=== PATIENT | male | born 1995 | race Caucasian/White ===

== ENCOUNTER 2016-04-25 10:06 | Emergency (ER) | payer BC ==
[2016-04-25 10:16] VITALS: BP 177/92
[2016-04-25] MEDS ORDERED: cefTRIAXone VIAL(*) 1,000 MG VIAL IM ONE (11:05)
[2016-04-25] MEDS ORDERED: Azithromycin TAB* 250 MG PO ONE (11:05)
--- NOTE | 2016-04-25 11:10 | UC ---
Complaint Male HPI - HPI Summary HPI Summary: Pt c/o erythema, blisters and tenderness on shaft of penis. Reports that he had unprotected heterosexual intercourse 2 weeks ago and symptoms began a "few days" after sexual encounter. Partner is a known partner to pt. Denies any STD 's. Also, c/o of pruritic rash at top of buttocks intergluteal . Also, c/o pain with urination. - History of Current Complaint Chief Complaint: UCSTDScreening Stated Complaint: PERSONAL Time Seen by Provider: 04/25/16 10:43 Hx Obtained From: Patient Onset/Duration: Gradual Onset, Lasting Weeks Timing: Constant Severity Initially: Mild Severity Currently: Mild Location: Penis Character: Burning - with urination, healing blisters are tender to touch. Aggravating Factor(s): Voiding Associated Signs And Symptoms: Positive: Dysuria Prior STD Hx: denies - Allergies/Home Medications Allergies/Adverse Reactions: Allergies Allergy/AdvReac Type Severity Reaction Status Date / Time hay Allergy Itching Uncoded 02/03/15 20:11 PMH/Surg Hx/FS Hx/Imm Hx Previously Healthy: Yes Respiratory History Of: Reports: Asthma - Surgical History Surgical History: Yes Surgery Procedure, Year, and Place: wisdom teeth - Family History Known Family History: Positive: Other - unknown [facility] for STD's - Social History Occupation: Employed Part-time Lives: With Family Alcohol Use: None Substance Use Type: None Smoking Status (MU): Light Every Day Tobacco Smoker Type: Cigarettes Amount Used/How Often: 6 cigarettes daily Review of Systems Constitutional: Negative Skin: Rash, Other - blisters ENT: Negative Respiratory: Negative Cardiovascular: Negative Gastrointestinal: Negative Genitourinary: Dysuria Motor: Negative Neurovascular: Negative Musculoskeletal: Negative Neurological: Negative Psychological: Negative All Other Systems Reviewed And Are Negative: Yes Physical Exam Triage Information Reviewed: Yes Appearance: Well-Appearing Vital Signs: Initial Vital Signs Temp 99.9 F 04/25/16 10:11 Pulse 108 04/25/16 10:11 Resp 20 04/25/16 10:11 BP 177/92 04/25/16 10:11 Pulse Ox 99 04/25/16 10:11 Vital Signs Reviewed: Yes Neck exam: Normal Respiratory Exam: Normal Cardiovascular Exam: Normal Abdominal Exam: Normal Bowel Sounds: Positive: Present Musculoskeletal Exam: Normal Neurological Exam: Normal Psychological Exam: Normal Skin Exam: Other - two small, eraser head size healing sores, mild tenderness with examination. NO discharge, pinprick, mild erythema sacrum, intergluteal cleft fold Complaint Male Course/Dx - Differential Dx/Diagnosis Differential Diagnosis/HQI/PQRI: Epididymitis, Urinary Tract Infection, Other - urethritis, STD's Provider Diagnoses: urethritis,. Possible STD exposure Discharge - Discharge Plan Condition: Stable Disposition: HOME Patient Education Materials: Nonspecific Urethritis in Men (ED), Skin Yeast Infection (ED) Referrals: No Primary Care Phys,NOPCP [Primary Care Provider] - [facility] [Outside]
[2016-04-25] MEDS ORDERED: Lidocaine 1%* 5 ML VIAL ONE (11:13)
[2016-04-26 11:47] LABS: Syphilis Index < 0.1 Index
== END 2016-04-25 11:53 | disposition home or self-care (01) ==
LOC: UCCORT 10:06
DX: N34.2 Other urethritis (principal); R21 Rash and other nonspecific skin eruption; F17.210 Nicotine dependence, cigarettes, uncomplicated
CPT/HCPCS: 36415; 86592; 86694; 86695; 86696; 87491; 87591; 96372; 99212; A9270-GY; G0463; J0696

== ENCOUNTER 2016-06-07 03:24 | Emergency (ER) | payer BC ==
[2016-06-07] MEDS ORDERED: NS 0.9% 1000 ML* 2,000 ML IV ONE (03:51)
[2016-06-07 04:06] LABS: Urine Bacteria Absent (Absent); Urine Bilirubin Negative (Negative); Urine Glucose Negative (Negative); Urine Nitrite Negative (Negative)
[2016-06-07 04:12] LABS: Benzodiazepine Urine Screen None Detected (None Detect)
[2016-06-07 04:20] LABS: Hematocrit 44 % (42-52); Hemoglobin 15.2 g/dl (14.0-18.0); Mean Corpuscular HGB Conc 35 g/dl (31-36); Mean Corpuscular Hemoglobin 30 pg (27-31); Mean Corpuscular Volume 87 fL (80-94); Mean Platelet Volume 8 um3 (7.4-10.4); Red Blood Count 5.06 10^6/ul (4.0-5.4); Red Cell Distribution Width 13 % (10.5-15)
[2016-06-07 04:29] LABS: ALT 32 U/L (7-52); AST 24 U/L (13-39); Albumin 4.3 g/dL (3.2-5.2); Alkaline Phosphatase 39 U/L (34-104); Anion Gap 7 mmol/L (2-11); BUN/Creatinine Ratio 19.4 (8-20); Blood Urea Nitrogen 19 mg/dL (6-24); CO2 Carbon Dioxide 27 mmol/L (22-32); Calcium 8.9 mg/dL (8.6-10.3); Chloride 101 mmol/L (101-111); EGFR Non-African American 95.6 (>60); Globulin 2.7 g/dL (2-4); Glucose 145 mg/dL (70-100); Potassium 3.6 mmol/L (3.5-5.0); Sodium 135 mmol/L (133-145)
[2016-06-07 04:32] LABS: Troponin I 0.01 ng/mL (<0.04)
[2016-06-07 04:40] LABS: Acetaminophen < 15 mcg/mL; Alcohol < 10 mg/dL (<10); Salicylate < 2.50 mg/dL (<30)
[2016-06-07 04:50] LABS: TSH (Thyroid Stimulating Horm) 7.51 mcIU/mL (0.34-5.60)
--- NOTE | 2016-06-07 06:24 | ED ---
Jo Ann Simons Claudia, scribed for Trisha Cerdauel on 06/07/16 at 0334 . Substance Abuse/Use - HPI Summary HPI Summary: 21 year old male presents to the ED post- substance overuse. Pt is unresponsive when found by EMS in [place] parking lot. Pt is given 2 dosages of Narcan and becomes responsive. Pt is responsive but drowsy on arrival to [facility]. Pt states he took 5-6 oxycodone but did not take anything else. Pt notes he took it around 21:00. Pt denies CP, abd pain. - History Of Current Complaint Chief Complaint: EDOverdose Stated Complaint: OVERDOSE Time Seen by Provider: 06/07/16 03:31 Hx Obtained From: Patient Ingestion History: Type/Name Of Drug - oxycodone, Amount Ingested - 5-6 pills, Approximate Time Of Ingestion - 2100 Overdose Characteristics: Oral - Allergies/Home Medications Allergies/Adverse Reactions: Allergies Allergy/AdvReac Type Severity Reaction Status Date / Time hay Allergy Itching Uncoded 06/07/16 03:34 PMH/Surg Hx/FS Hx/Imm Hx Previously Healthy: Yes Endocrine/Hematology History: Denies: Hx Diabetes Respiratory History: Reports: Hx Asthma - Surgical History Surgery Procedure, Year, and Place: wisdom teeth Infectious Disease History: No Infectious Disease History: Denies: Traveled Outside the [place] in Last 30 Days - Family History Known Family History: Positive: Other - unknown [facility] for STD's Family History: Depression - Social History Occupation: Unemployed Lives: With Family Alcohol Use: None Substance Use Type: Reports: None Smoking Status (MU): Light Every Day Tobacco Smoker Type: Cigarettes Amount Used/How Often: 6 cigarettes daily Review of Systems Constitutional: Negative Eyes: Negative ENT: Negative Cardiovascular: Negative Negative: Chest Pain Respiratory: Negative Gastrointestinal: Negative Negative: Abdominal Pain Genitourinary: Negative Musculoskeletal: Negative Skin: Negative Neurological: Negative Psychological: Normal All Other Systems Reviewed And Are Negative: Yes Physical Exam Triage Information Reviewed: Yes Vital Signs On Initial Exam: Initial Vitals Temp Pulse Resp BP Pulse Ox 98.6 F 94 18 153/89 98 06/07/16 03:25 06/07/16 03:25 06/07/16 03:25 06/07/16 03:25 06/07/16 03:25 Vital Signs Reviewed: Yes Appearance: Positive: No Pain Distress - drowsy Skin: Positive: Warm, Skin Color Reflects Adequate Perfusion, Dry Head/Face: Positive: Normal Head/Face Inspection Eyes: Positive: EOMI, LISA ENT: Positive: Normal ENT inspection Neck: Positive: Supple, Nontender Respiratory/Lung Sounds: Positive: Clear to Auscultation, Breath Sounds Present Cardiovascular: Positive: RRR, Pulses are Symmetrical in both Upper and Lower Extremities Abdomen Description: Positive: Nontender, Soft Bowel Sounds: Positive: Present Musculoskeletal: Positive: Strength/ROM Intact Neurological: Positive: Sensory/Motor Intact, Alert, Oriented to Person Place, Time, CN Intact II-III Psychiatric: Positive: Affect/Mood Appropriate Diagnostics - Vital Signs Vital Signs Temp Pulse Resp BP Pulse Ox 06/07/16 03:25 98.6 F 94 18 153/89 98 - Laboratory Result Diagrams: 06/07/16 04:00 06/07/16 04:00 Lab Statement: Any lab studies that have been ordered have been reviewed, and results considered in the medical decision making process. - EKG 4:05 Cardiac Rate: NL EKG Rhythm: Sinus Rhythm - 90 BEATS/MIN EKG Interpretation: NO ACUTE CHANGES Course/Dx - Course Assessment/Plan: AFTER OBSERVATION FOR SEVERAL HOURS AND AN EKG PT IS AGREEABLE WITH PLAN TO BE D/C HOME WITH FOLLOW-UP WITH PCP THIS WEEK. - Diagnoses Provider Diagnoses: Substance abuse Discharge - Discharge Plan Condition: Stable Disposition: HOME Patient Education Materials: Polysubstance Abuse (ED) Referrals: No Primary Care Phys,NOPCP [Primary Care Provider] - 3 Days The documentation as recorded by the Jo Ann huffman Claudia accurately reflects the service I personally performed and the decisions made by Prashant gracia Emmanuel.
[2016-06-07 06:40] VITALS: BP 132/105
== END 2016-06-07 06:41 | disposition home or self-care (01) ==
LOC: ED 03:24
DX: F19.10 Other psychoactive substance abuse, uncomplicated (principal); F17.290 Nicotine dependence, other tobacco product, uncomplicated; J45.909 Unspecified asthma, uncomplicated
CPT/HCPCS: 36415; 80053; 80307; 80320; 80329; 81003; 81015; 84443; 84484; 85025; 93005; 96360; 96361; 99283; G0480